=== PATIENT | female | born 1945 ===

== ENCOUNTER 2021-01-22 05:28 | Day surgery (SDC) | payer OTHER ==
[~2021-01-22 05:28] MED LIST: NORVASC5 MG PO
[2021-01-22] MEDS ORDERED: ULTRACET PO (09:22)
[2021-01-22] MEDS ORDERED: MACROBID 100 M100 MG PO (09:22)
== END 2021-01-22 13:25 | disposition home or self-care (01) ==
LOC: CIR.AMB 05:28
PROVIDERS: ATTEND Obstetrics & Gynecology Gynecology
DX: N81.3 Complete uterovaginal prolapse (principal)